=== PATIENT | female | born 1990 | race Caucasian/White ===

== ENCOUNTER 2016-12-09 15:41 | Emergency (ER) | payer BC, OTHER ==
[2016-12-09 16:23] VITALS: BP 120/80
--- NOTE | 2016-12-09 16:28 | ED ---
HPI Febrile Illness - HPI Summary HPI Summary: 26 F w/ no PMH presents with fever, body aches, headaches, dry cough, runny nose , and sore throat for three days. She also admits to nasal congestion. She admits to generalized abdominal pain. She denies any n/v/d. Has been taking tyenlol and nytquil for fever and pain. - History of Current Complaint Chief Complaint: UCGeneralIllness Time Seen by Provider: 12/09/16 16:15 - Allergy/Home Medications Allergies/Adverse Reactions: Allergies Allergy/AdvReac Type Severity Reaction Status Date / Time No Known Allergies Allergy Verified 12/09/16 16:14 PMH/Surg Hx/FS Hx/Imm Hx Endocrine/Hematology History: Denies: Hx Diabetes, Hx Thyroid Disease Cardiovascular History: Denies: Hx Hypertension Respiratory History: Denies: Hx Asthma, Hx Chronic Obstructive Pulmonary Disease (COPD) GI History: Denies: Hx Ulcer Infectious Disease History: No Infectious Disease History: Denies: Hx Hepatitis, Hx Human Immunodeficiency Virus (HIV), History Other Infectious Disease, Traveled Outside the [place] in Last 30 Days - Family History Known Family History: Negative: Respiratory Disease - Social History Alcohol Use: Occasionally Substance Use Type: Reports: None Smoking Status (MU): Never Smoked Tobacco Review of Systems Positive: Fever Positive: Sore Throat, Nasal Discharge Negative: Chest Pain Positive: Cough. Negative: Shortness Of Breath Positive: Abdominal Pain - generalized. Negative: Vomiting, Diarrhea, Nausea All Other Systems Reviewed And Are Negative: Yes Physical Exam Triage Information Reviewed: Yes Vital Signs On Initial Exam: Initial Vitals Temp Pulse Resp BP Pulse Ox 100.0 F 111 18 120/80 99 12/09/16 16:15 12/09/16 16:15 12/09/16 16:15 12/09/16 16:15 12/09/16 16:15 Vital Signs Reviewed: Yes Appearance: Positive: Well-Appearing Skin: Positive: Warm, Dry Head/Face: Positive: Normal Head/Face Inspection Eyes: Positive: Normal, EOMI, KARSTEN, Conjunctiva Clear ENT: Positive: Normal ENT inspection, Pharynx normal, TMs normal Neck: Positive: Supple, Nontender, No Lymphadenopathy Respiratory/Lung Sounds: Positive: Clear to Auscultation, Breath Sounds Present Cardiovascular: Positive: Normal, RRR Abdomen Description: Positive: Nontender, Soft Bowel Sounds: Positive: Present Diagnostics - Vital Signs Vital Signs Temp Pulse Resp BP Pulse Ox 12/09/16 16:15 100.0 F 111 18 120/80 99 - Laboratory Lab Statement: Any lab studies that have been ordered have been reviewed, and results considered in the medical decision making process. Course/Dx - Course Course Of Treatment: 26 F presents with flu like symptoms for 3 days. PE normal , influenza A positive, encouraged to wash hands to not spread virus, discussed passed window to treat, will treat supporatively, patient agrees with plan - Febrile Illness Differential Diagnoses: Viremia, Other: - influenza, bronchitis - Diagnoses Provider Diagnoses: Influenza Discharge - Discharge Plan Condition: Good Disposition: HOME Patient Education Materials: Influenza (ED) Forms: *Work Release Referrals: Ling Hernandez MD [Primary Care Provider] - Additional Instructions: Take Tylenol and ibuprofen for muscle aches and fever every 6 hours. Practice good hand washing technique Saline rinse can be used multiple times a day for nasal congestion Use humidifier in room or place bowls of warm water around room Try to drink fluids every hour and eat a small snack every 3 hours Return to ED if shortness of breath or chest pain or if symptoms become worst or develop new symptoms.
== END 2016-12-09 17:11 | disposition home or self-care (01) ==
LOC: UCEAST 15:41
DX: J11.1 Influenza due to unidentified influenza virus with other respiratory manifestations (principal)
CPT/HCPCS: 87502; 99211; G0463